=== PATIENT | female | born 1965 | race Caucasian/White ===

== ENCOUNTER → 2017-05-04 | Outpatient (CLI) | payer OTHER ==
--- NOTE | 2017-05-04 14:13 | RAD ---
DATE: May 04, 2017 EXAM: DIGITAL DIAGNOSTIC BILATERAL, SONOGRAPHY BREAST RIGHT HISTORY: Brownish right nipple discharge. COMPARISON: 2013 and 2015 FINDINGS: The breast parenchyma heterogeneiously dense, which could reduce sensitivity of mammography. There are no dominant suspicious masses, suspicious microcalcifications or evidence of architectural distortion. RIGHT BREAST SONOGRAPHY: High-resolution sonography of the retroareolar region of the right breast was performed. No retroareolar ductal ectasia or mass or cyst or abscess is seen. No area of irregular acoustic shadowing is evident. IMPRESSION: No mammographic indicators for malignancy. BI-RADS CATEGORY: 1 NEGATIVE RECOMMENDED FOLLOW-UP: 12M 12 MONTH FOLLOW-UP PQRS compliance statement: Patient information was entered into a reminder system with a target due date May 05, 2018 for the next mammogram. Mammography is a sensitive method for finding small breast cancers, but it does not detect them all and is not a substitute for careful clinical examination. A negative mammogram does not negate a clinically suspicious finding and should not result in delay in biopsying a clinically suspicious abnormality. "Our facility is accredited by the [employer] Mammography [employer]." The patient's breast density may affect the ability of mammography to detect breast cancer. There are 4 categories of breast density, A, B, C and D. Breast density A means that most of the breast tissue is replaced with adipose tissue and therefore is not dense. Breast density B means that the breast tissue is mildly dense and scattered. Breast density C means that the breast tissue is heterogeneously dense. Breast density D means that the breast tissue is very dense. Breast densities especially C and D may decrease the sensitivity of mammography to detect breast cancer. Therefore, the patient may benefit from 3-D breast mammography (3D breast tomography) as a part of their screening mammogram. Insurance may or may not pay for this additional imaging. The patient's breast density based on today's mammogram is category C.
== END | disposition home or self-care (01) ==
LOC: KCIC MAMMO 13:18
PROVIDERS: ATTEND Preventive Medicine Public Health & General Preventive Medicine
DX: N64.52 Nipple discharge (principal)
CPT/HCPCS: 76641; G0204; 77066

== ENCOUNTER → 2018-05-10 | Outpatient (CLI) | payer OTHER | END | disposition home or self-care (01) | LOC: KCIC MAMMO 10:17 | DX: Z12.31 Encounter for screening mammogram for malignant neoplasm of breast (principal) | CPT/HCPCS: 77067 ==

== ENCOUNTER → 2019-05-26 | Outpatient (CLI) | payer OTHER ==
--- NOTE | 2019-05-26 10:03 | KCIC ---
CT LOW DOSE LUNG SCREENING History: History of smoking. Technique: Noncontrast CT of the chest was performed. Coronal and sagittal reconstructions were performed. Comparison: None Findings: Chest: No consolidation or pleural effusion. Normal heart size. No pathologic axillary, mediastinal or hilar lymphadenopathy. Coronary artery calcifications. Additional right middle lobe partially calcified pulmonary nodule measures 5 mm (series 3 image #[id number]) Mild paraseptal and centrilobular emphysema. Left lower lobe calcified granuloma. Bilateral lower lobe subsegmental atelectasis or scarring. 3 mm right anterior pleural-based nodule (series 3 image #314). 2 mm right upper lobe pulmonary nodule (image #146). Upper abdomen: The imaged upper abdomen is unremarkable. Bones: Chronic appearing T8 vertebral body compression fracture. Multilevel Schmorl's nodes. Impression: 1. Small right-sided pulmonary nodules. Lung RADS 2. Recommend continued annual screening. 2. Mild pulmonary emphysema. 3. Coronary artery calcifications. Electronically signed by: Shawn Valladares DO (05/26/2019 10:00 AM) [id number]
--- NOTE | 2019-05-26 14:55 | KCIC ---
BILATERAL SCREENING MAMMOGRAM History: Routine screening. Comparison: Bilateral mammogram May 10, 2018 and dating back to 2013. Technique: Routine bilateral digital mammogram views were obtained. Findings: Breast Tissue Density D :The breasts are extremely dense, which lowers the sensitivity of mammography. There are no dominant masses, suspicious microcalcifications, or architectural distortion. IMPRESSION: No mammographic evidence of malignancy. Recommend routine screening. BI-RADS category 1: Negative. The images were reviewed with computer aided detection. Patient information is entered into the reminder system with a target due date for the next screening mammogram. Mammography is the most sensitive method for finding small breast cancers, but it does not detect them all and is not a substitute for careful clinical examination. A negative mammogram does not negate a clinically suspicious finding and should not result in delay in biopsying a clinically suspicious abnormality. "Our facility is accredited by the [employer] Mammography Program." Electronically signed by: Jeronimo Tyler MD (05/26/2019 2:52 PM) [id number]
== END | disposition home or self-care (01) ==
LOC: KCIC CT 08:37
PROVIDERS: ATTEND Preventive Medicine Public Health & General Preventive Medicine
DX: Z12.31 Encounter for screening mammogram for malignant neoplasm of breast (principal); Z12.2 Encounter for screening for malignant neoplasm of respiratory organs; J43.2 Centrilobular emphysema; I25.10 Atherosclerotic heart disease of native coronary artery without angina pectoris; R91.8 Other nonspecific abnormal finding of lung field; M51.44 Schmorl's nodes, thoracic region; Z87.891 Personal history of nicotine dependence
CPT/HCPCS: 77067; G0297

== ENCOUNTER → 2019-07-11 | Outpatient (CLI) | payer OTHER ==
--- NOTE | 2019-07-11 16:33 | KCIC ---
Bone densitometry 07/11/2019 9:20 AM Indication: Vertebral fracture. Smoking. Screening exam. Comparison Study: None available. Discussion: Bone Densitometry was performed with dual photon absorption of the lumbar spine and proximal left femur. Lumbar Spine: Bone average density is 0.896g/cm2 for L1-L4. T-Score is -1.4. Left proximal femur: Bone average density is 0.808g/cm2. T-Score is -1.1. IMPRESSION: Osteopenia. Note: Definitions established by the World Health Organization: Normal: T-score is -1.0 or above. Osteopenia: T-score is between -1.0 and -2.5. Osteoporosis: T-score is -2.5 or below. Electronically signed by: Curt Scales MD (07/11/2019 4:31 PM) [id number]
== END | disposition home or self-care (01) ==
LOC: KCIC DEXA 09:12
PROVIDERS: ATTEND Preventive Medicine Public Health & General Preventive Medicine
DX: Z13.820 Encounter for screening for osteoporosis (principal); M85.862 Other specified disorders of bone density and structure, left lower leg; M85.88 Other specified disorders of bone density and structure, other site; F17.200 Nicotine dependence, unspecified, uncomplicated
CPT/HCPCS: 77080

== ENCOUNTER → 2020-08-22 | Outpatient (CLI) | payer OTHER ==
--- NOTE | 2020-08-22 16:51 | KCIC ---
Bilateral digital screening mammograms: Reason for examination: Routine screening. Comparison is made to previous studies dated back to 01/17/2016. Interpretation was made with the benefit of CAD. The skin and nipples show no abnormalities. No abnormal axillary lymph nodes are seen. The breast parenchyma is heterogeneously dense. (Breast density: Category C.) There are no dominant masses, suspicious calcifications or architectural distortion. Impression: No evidence of malignancy. Recommend routine screening. Your patient's mammogram demonstrates that she has dense breast tissue (breast density category C or D), which could hide abnormalities, and if she has other risk factors for breast cancer that have been identified, she might benefit from supplemental screening tests that may be suggested by you as her ordering physician. Dense breast tissue, in and of itself, is a relatively common condition. Therefore, this information is not provided to cause undue concern, but rather to raise your awareness and to promote discussion with your patient regarding the presence of other risk factors, in addition to dense breast tissue. Your patient's mammography results will be sent to her. BI-RAD Category 1: Negative. "Our facility is accredited by the [employer] Mammography Program." This patient's information has been entered into a reminder system for the patient to be notified with the results of her examination and a target date for the next mammogram. Electronically signed by: Elida Ennis MD (08/22/2020 4:48 PM) [email or web address]
== END ==
LOC: KCIC MAMMO 07:57
PROVIDERS: ATTEND Preventive Medicine Public Health & General Preventive Medicine
DX: Z12.31 Encounter for screening mammogram for malignant neoplasm of breast (principal)
CPT/HCPCS: 77067

== ENCOUNTER → 2021-08-22 | Outpatient (CLI) | payer OTHER ==
--- NOTE | 2021-08-22 08:41 | KCIC ---
Bilateral digital screening mammograms: Reason for examination: Routine screening. Comparison is made to previous studies dated back to 06/11/2014. Interpretation was made with the benefit of CAD. The skin and nipples show no abnormalities. No abnormal axillary lymph nodes are seen. The breast par enchyma is heterogeneously dense. (Breast density: Category C.) There are no dominant masses, suspici ous calcifications or architectural distortion. Impression: No evidence of malignancy. Recommend routine screening. Your patient's mammogram demonstrates that she has dense breast tissue (breast density category C or D), which could hide abnormalities, and if she has other risk factors for breast cancer that have bee n identified, she might benefit from supplemental screening tests that may be suggested by you as her ordering physician. Dense breast tissue, in and of itself, is a relatively common condition. Therefo re, this information is not provided to cause undue concern, but rather to raise your awareness and t o promote discussion with your patient regarding the presence of other risk factors, in addition to d ense breast tissue. Your patient's mammography results will be sent to her. BI-RAD Category 1: Negative. "Our facility is accredited by the [employer] Mammography Program." This patient's information has been entered into a reminder system for the patient to be notified wit h the results of her examination and a target date for the next mammogram. Electronically signed by: Elida Ennis MD (08/22/2021 8:39 AM) [email or web address]
== END ==
LOC: KCIC MAMMO 08:01
PROVIDERS: ATTEND Preventive Medicine Public Health & General Preventive Medicine
DX: Z12.31 Encounter for screening mammogram for malignant neoplasm of breast (principal)
CPT/HCPCS: 77067